=== PATIENT | male | born 2000 | race Hispanic/Latino ===

== ENCOUNTER 2024-02-05 13:46 | Emergency (ER) | payer SELFPAY ==
[~2024-02-05] VITALS: Ht 170.2 cm; Wt 72.6 kg
[2024-02-05 13:50] VITALS: PULSE 82; RESP 14; TEMP 97.7; O2SAT 100
== END 2024-02-05 14:30 | disposition home or self-care (01) ==
LOC: ER 13:53
DX: M54.50 Low back pain, unspecified (principal); X50.0XXA Overexertion from strenuous movement or load, initial encounter; Y92.89 Other specified places as the place of occurrence of the external cause
CPT/HCPCS: 99282